=== PATIENT | male | born 2000 ===

== ENCOUNTER 2022-09-03 02:30 | Emergency (ER) | payer OTHER, SELFPAY ==
--- NOTE | 2022-09-03 02:30 | DI.RAD_ITS ---
Exam(s) XR SCAPULA LT EXAM: XR SCAPULA LT CLINICAL HISTORY: fall, eval for fx. TECHNIQUE: 2D digital imaging was performed. COMPARISON: CR,XR XR SHOULDER LT COMPLETE 2+V from 09/03/2022 FINDINGS: 3 views No evidence of acute fracture of the scapula. Glenohumeral joint unremarkable. AC joint separation which is best seen on the dedicated shoulder views; less evident on these views. IMPRESSION: AC joint dislocation which is best appreciated on dedicated shoulder radiographs performed same date. DATA REPOSITORY: RADIATION DOSE DELIVERED:
--- NOTE | 2022-09-03 02:30 | DI.RAD_ITS ---
Exam(s) XR SHOULDER LT COMPLETE 2+V EXAM: XR SHOULDER LT COMPLETE 2+V CLINICAL HISTORY: fall, suspect AC joint disruption. TECHNIQUE: 2D digital imaging was performed. COMPARISON: No exams were available for comparison FINDINGS: Four views: No evidence of fracture or dislocation of glenohumeral joint. The main finding here is dislocation o f the acromioclavicular joint, not associated with fractures of the clavicle nor of the a chromium. Coracoid process appears intact. IMPRESSION: Dislocated AC joint. No fractures evident. DATA REPOSITORY: RADIATION DOSE DELIVERED:
[2022-09-03 02:33] VITALS: BP 146/75; PULSE 109; RESP 16; TEMP 37.3; O2SAT 98
--- NOTE | 2022-09-03 02:36 | ED.GENADUL_ITS ---
Discharge Plan Disposition Patient Disposition: Home Condition: Good Discharge Details Clinical Impression: Injury of left shoulder, Acromioclavicular joint separation Primary Care Provider: Unknown,Unknown ED Provider: Ross Begum Home Meds and New Rx's Prescriptions: No Action No Known Home Meds Discharge Instructions Instructions: Acromioclavicular Separation (ED), Shoulder Sprain (ED) Additional Instructions: At this time your symptoms are concerning for an AC joint separation. Please keep the sling on for comfort for the next 1 to 2 weeks. Regularly move your shoulder around to prevent any frozen shoulder syndrome. Take Tylenol and Motrin as needed for pain. Avoid any lifting or significant exertional effort with the left shoulder. We have placed a referral with the cardiovascular disease specialist. Please follow-up closely with them for further discussion of potential further treatment if indicated if your healing is suboptimal. If you notice any worsening of your symptoms, or any new symptoms such as vomiting, diarrhea, fever, chills, shortness of breath, chest pain, numbness, weakness, or fainting , please return immediately to the emergency department for reevaluation. Please follow up with your primary care provider as soon as possible for reassessment and reevaluation. As always, it was a pleasure participating in your medical care today. Medical Decision Making Pleasant 21-year-old male with no significant past medical history presents today for left shoulder pain. Patient was intoxicated this evening and was skateboarding at 2 AM when he fell off and hit the ground with his left shoulder. He denies hitting his head or having any other trauma. He is concerned about potential dislocation. He came immediately to the ER with his friends for further assessment. Pain is made worse with movement, improved by nothing. He denies any chest pain, shortness of breath, numbness tingling or weakness. Exam demonstrates small abrasion to the left scapula. Swelling over the left AC joint. No tenderness over the proximal humerus. Patient demonstrates excellent range of motion for the left shoulder and left upper extremity. 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 No tenderness. Mild tenderness over the lateral clavicle and the acromion. Minimal tenderness over the scapula. No active hemorrhage. Pain is notably elicited and worsening deformity is noted with superior movement of the arm and resistance against this. Empty can test certainly worsens pain as well. Concern for AC joint separation. Shoulder dislocation notably less likely. We will get an x-ray, give Tylenol Motrin, monitor closely and reassess. Immunizations including tetanus is up-to-date. X-rays show evidence of AC joint separation. No evidence of dislocation of the humerus. Normal neurovascular exam distally. Patient given sling for comfort. We will place orthopedic referral for follow-up. Recommend NSAIDs, avoidance of activities that can cause strain on the AC joint, close follow-up. Discussed red flags for which to return. No other evidence of trauma at this time necessitating additional exam. I have extensively reviewed the treatment plan and discharge instructions with the patient. I have addressed all patient concerns at this time. The patient was made aware of what symptoms to monitor for that would warrant a return to the emergency department. Discussed the plan with the patient, they demonstrate verbal understanding and agreement with our assessment and plan at this time. The documentation in this chart was dictated using [employer] dictation software. Please excuse any dictation errors. FINDINGS: Bones/joints: No displaced fracture. Acromioclavicular joint separation, better appreciated on shoulder radiographs. Soft tissues: Mild soft tissue swelling. IMPRESSION: Acromioclavicular joint separation, better appreciated on shoulder radiographs. Thank you for allowing us to participate in the care of your patient. Dictated and Authenticated by: Carlos Alberto Acuna MD 09/03/2022 5:52 AM Eastern Time ([place] & [place]) FINDINGS: Bones/joints: No acute fracture. Widening of acromioclavicular joint with superior displacement of distal clavicle relative to acromion. Soft tissues: Mild soft tissue swelling. IMPRESSION: Acromioclavicular joint separation. Thank you for allowing us to participate in the care of your patient. Dictated and Authenticated by: Carlos Alberto Acuna MD 09/03/2022 5:50 AM Eastern Time ([place] & [place]) HPI General Date/Time Provider Initiated Documentation: 09/03/22 02:32 . HPI Narrative: Pleasant 21-year-old male with no significant past medical history presents today for left shoulder pain. Patient was intoxicated this evening and was skateboarding at 2 AM when he fell off and hit the ground with his left shoulder. He denies hitting his head or having any other trauma. He is concerned about potential dislocation. He came immediately to the ER with his friends for further assessment. Pain is made worse with movement, improved by nothing. He denies any chest pain, shortness of breath, numbness tingling or weakness. Related Data Home Medications Medication Instructions Recorded Confirmed Unknown [No Known Home Meds] 09/03/22 09/03/22 Allergies Allergy/AdvReac Type Severity Reaction Status Date / Time No Known Allergies Allergy Unverified 09/03/22 02:38 Review of Systems All systems reviewed & are unremarkable except as noted in HPI and below PFSH All Active Problems (Updated 09/03/22 @ 03:26 by Ross Begum DO) Injury of left shoulder (Acute) Acromioclavicular joint separation (Acute) Social History Smoking/Tobacco Use Status: Current every day Tobacco Type: cigarettes Smoking risk assessment performed?: Yes Substance use type: marijuana Exam Narrative Exam Narrative: 1.Const: Well-nourished, Well-developed, appearing stated age 2.Eyes: PERRL, no conjunctival injection, and symmetrical lids. 3.ENT: Atraumatic external nose and ears. Moist MM. Neck: Symmetric, trachea midline, No thyromegaly. There is no evidence of raccoon eyes, rabago sign, CSF rhinorrhea, mastoid tenderness, cranial crepitus, hemotympanum, exophthalmos, or hyphema. Patient demonstrates intact dentition with no signs of tooth avulsion or fracture, no signs of jaw deformity, no evidence of a LeFort's fracture, with an intact palate, nose and orbital region. There is no evidence of a nasal septal hematoma. No proptosis. Jaw closes symmetrically. Airway is clear. 4.CVS: +S1/S2, No murmurs or gallops. Peripheral pulses 2+ and equal in all extremities. Brisk capillary refill in all extremities. 5.RESP: Unlabored respiratory effort. Clear to auscultation bilaterally. No wheezes rales or rhonchi 6.GI: Soft, Nontender/Nondistended, No hepatosplenomegaly. No guarding or rebound. 7.MSK: Normocephalic/Atraumatic, small abrasion to the left scapula. Swelling over the left AC joint. No tenderness over the proximal humerus. Patient demonstrates excellent range of motion for the left shoulder and left upper extremity. 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 No tenderness. Mild tenderness over the lateral clavicle and the acromion. Minimal tenderness over the scapula. No active hemorrhage. Pain is notably elicited and worsening deformity is noted with superior movement of the arm and resistance against this. Empty can test certainly worsens pain as well. 8.Skin: Warm, Dry. No rashes or lesions. 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 Sensation grossly intact, no focal neurologic deficits. 10.Psych: (AAO) x3. Appropriate mood and affect
[2022-09-03] MEDS: Ibuprofen 800 MG TAB PO (02:40)
[2022-09-03] MEDS: Acetaminophen 500 MG TAB 1000 MG PO (02:40)
--- NOTE | 2022-09-03 05:50 | DI.VRAD_ITS ---
PROCEDURE INFORMATION: Exam: XR Left Shoulder Exam date and time: 09/03/2022 2:50 AM Age: 21 years old Clinical indication: Injury or trauma; Fall; Blunt trauma (contusions or hematomas); Shoulder; Left; Additional info: Fall, suspect ac joint disruption TECHNIQUE: Imaging protocol: Radiologic exam of the left shoulder. Views: 2 or more views. COMPARISON: No relevant prior studies available. FINDINGS: Bones/joints: No acute fracture. Widening of acromioclavicular joint with superior displacement of distal clavicle relative to acromion. Soft tissues: Mild soft tissue swelling. IMPRESSION: Acromioclavicular joint separation. Dictated and Authenticated by: Carlos Alberto Acuna MD. Ordering:CODY Hawkins MD
--- NOTE | 2022-09-03 05:52 | DI.VRAD_ITS ---
PROCEDURE INFORMATION: Exam: XR Left Scapula Exam date and time: 09/03/2022 2:52 AM Age: 21 years old Clinical indication: Injury or trauma; Blunt trauma (contusions or hematomas); Shoulder; Left; Injury details: Fall, suspect ac joint disruption TECHNIQUE: Imaging protocol: Radiologic exam of the left scapula. Complete exam. COMPARISON: CR XR SHOULDER LT COMPLETE 2+V 09/03/2022 2:50 AM FINDINGS: Bones/joints: No displaced fracture. Acromioclavicular joint separation, better appreciated on shoulder radiographs. Soft tissues: Mild soft tissue swelling. IMPRESSION: Acromioclavicular joint separation, better appreciated on shoulder radiographs. Dictated and Authenticated by: Carlos Alberto Acuna MD. Ordering:CODY Hawkins MD
== END 2022-09-03 03:34 | disposition home or self-care (01) ==
PROVIDERS: Emergency Provider Student in an Organized Health Care Education/Training Program
DX: S43.112A Subluxation of left acromioclavicular joint, initial encounter (principal); V00.131A Fall from skateboard, initial encounter
CPT/HCPCS: 99284; 73010; 73030; 99283